=== PATIENT | male | born 1955 | race Caucasian/White ===

== ENCOUNTER → 2017-02-09 | Day surgery (SDC) | payer OTHER ==
[~2017-02-09] VITALS: Ht 177.8 cm; Wt 87.5 kg
[~2017-02-09] MED LIST: BYSTOLIC20 M1 PO; COZAAR50 M1 PO; FINASTERIDE5 M1 PO; FLOMAX0.4 M1 PO; SIMVASTATIN20 M2 PO
--- NOTE | 2017-02-09 15:05 | Operative Report ---
Operative/Inv Procedure Report Surgery Date: 02/09/17 Name of Procedure: cysto/TURP bipolar Pre-Operative Diagnosis: BPH with obstructive voiding , failed medical therapy Post-Operative Diagnosis: same Estimated Blood Loss: less than 50ml Surgeon/Braiding Operator: AJIT CARRANZA MD Anesthesia: laryngeal mask airway Drains: 22fr hematuria coude catheter [address] Specimens: prostate chips Complications: none Condition: stable Operative Indication: bph with obstructive voiding symptoms Operative/Procedure Note Note: Patient was identified in the holding area and consented for a cystoscopy/ transurethral resection of the prostate with bipolar resectoscope. he was given the r/b/a of the surgery. All questions answered. Patient was taken to the operating placed on the operating table in supine position. Once timeout was performed he was given IV antibiotics and general anesthesia was initiated. Placement dorsolithotomy position and prepped and draped in the standard sterile fashion. Cystoscopy was performed however it was difficult placing the cystoscope into the penile urethra. He needed to be dilated up to 32 Kosovan to accommodate the cystoscope and later the resectoscope. The bladder was globally inspected and there were no abnormalities appreciated his ureteral orifices were in the normal anatomic position. The cystoscope was switched out with a resectoscope with the bipolar loop. The resection was started at the bladder neck after the prostate was visualized from the verumontanum to the bladder neck. They were kissing lateral lobes. The resection was started on the patient's right lateral lobe at 9:00 and down toward 6:00. This was done on the left side as well and the same manner from 3:00 to 6:00. The resection was done sequentially clockwise manner and care was taken not to resect beyond the verumontanum. The prostatic chips were removed after the resection. Point coagulation was performed throughout the surgery for active bleeders. The prostate chips were sent to pathology in formalin. The rollerball was then used after the resecting loop to smooth out the channel as well as get final hemostasis. The bladder was reexamined and the ureteral orifices were not injured. All the prostatic chips were removed with the Murtaza evacuator. A 22 Kosovan three-way hematuria coud catheter was placed without difficulty. The irrigation was connected and the Adkins bag was attached. The patient tolerated the procedure well. Findings: large lateral kissing prostate lobes. no injury to ureteral orifices postresection. verumontanum intact. Discharge Disposition: PACU
== END ==
LOC: STS 01:46
DX: N40.1 Benign prostatic hyperplasia with lower urinary tract symptoms (principal); N41.1 Chronic prostatitis; N13.8 Other obstructive and reflux uropathy; R35.0 Frequency of micturition; I11.9 Hypertensive heart disease without heart failure; E78.4 Other hyperlipidemia; L85.3 Xerosis cutis
CPT/HCPCS: 88305; J0131; J0360; J0690; J1100; J2250; J2405